=== PATIENT | female | born 1975 | race Caucasian/White ===

== ENCOUNTER 2019-04-19 09:47 | Observation (INO) ==
[2019-04-19 10:28] LABS: Bilirubin,Urine Small (Negative); Blood,Urine Negative (Negative); Clarity,Urine Cloudy (Clear); Color,Urine Yellow (Yellow); Glucose,Urine (UA) Normal (Normal); Ketones,Urine 40 mg/dL (Negative); Leukocyte Esterase,Urine Negative (Negative); Nitrite,Urine Negative (Negative); PH,Urine 5.5 pH Units (5.0-8.0); Protein,Urine Trace mg/dL (Neg-Trace); Specific Gravity,Urine 1.016 (1.010-1.025); Urobilinogen,Urine Normal (Normal)
[2019-04-19 10:30] LABS: Bacteria,Urine None Seen per hpf (None-Few); RBC,Urine 0-3 per hpf (0-3); Squamous Epithelial Cell,Urine Many per lpf (None-Few)
[2019-04-19 10:39] LABS: Hyaline Casts,Urine Few per lpf (None-Few)
[2019-04-19] MEDS ORDERED: Isovue-370 500 ML BOTTLE IVP ONE (11:09)
[2019-04-19] MEDS ORDERED: Dicyclomine 20 MG/2 ML AMPUL IM STA (11:10)
[2019-04-19] MEDS ORDERED: KETAMINE IVPB ONE (11:10)
[2019-04-19] MEDS ORDERED: 0.9 % Sodium Chloride 1,000 ML IVC ONE ×2 (11:10→14:51)
[2019-04-19] MEDS ORDERED: SODIUM CHLORIDE 0.9% IVPB ONE (11:10)
[2019-04-19] MEDS ORDERED: Ondansetron 4 MG/2 ML VIAL IVP STA (11:10)
[2019-04-19] MEDS ORDERED: Ketorolac 15 MG/ML VIAL IVP STA (11:11)
[2019-04-19] MEDS ORDERED: Acetaminophen 325 MG TABLET PO ONE (11:12)
--- NOTE | 2019-04-19 11:14 | Emergency Department Note ---
Disposition Clinical Impression: Hypokalemia, Ileus Pancreatitis Qualifiers: Chronicity: acute Pancreatitis type: alcohol induced Acute pancreatitis compli cation: no infection or necrosis Qualified Code(s): K85.20 - Alcohol induced acute pancreatitis without necrosis or infection Disposition: Admitted As Inpatient Condition: Fair Referrals: Amy Mendez [Primary Care Provider] - Forms: ED Satisfaction Letter, Work/School Release Time of Disposition: 14:50 General Adult HPI - General Chief complaint: ED Abdominal Pain Stated complaint: ABD Pain,N/V,fever Time Seen by Provider: 04/19/19 10:43 Source: patient Limitations: no limitations - History of Present Illness HPI Narrative: Patient presents chief complaint of abdominal pain, fever and vomiting. Symptoms started 5 days ago with vomiting and diarrhea. The diarrhea has since resolved. She now is having hard stools and is still having flatus. She has had no hematemesis, bright red blood per rectum, melena or mucoid stools. She is vomiting that she has tried to drink, clear liquid, nonbilious emesis. Maximum temperature measured at home has been 100.3 degrees. Pain was initially periumbilical, now is epigastric and consistent with prior bouts of pancreatitis. She had recurrent alcoholic pancreatitis which required open surgical procedure for a pseudocyst about 45 years ago, this procedure was done at [facility] after a failed endovascular procedure here. She has had no problems pancreatitis since the surgery, but is drinking again. She does not drink every day. The left cell call consumption was 3 days before the onset of symptoms, about 4 or 5 beers per her report and her 's report at bedside. Denies urinary frequency, urgency, dysuria or hematuria. No vaginal bleeding or discharge. Pain does radiate through to her back. It is constant with intermittent waves of worsening. No chest pain, cough or shortness of breath. She is otherwise without complaint. Pain Scale: 5 - Related Data Home Medications Medication Instructions Recorded Confirmed Levothyroxine [Synthroid] 112 mcg PO DAILY 04/19/19 04/19/19 Allergies Allergy/AdvReac Type Severity Reaction Status Date / Time No Known Allergies Allergy Verified 04/19/19 09:53 All systems ED: reviewed and negative except as stated. Past Medical History - Past Medical History Medical history: Reports: thyroid disease - Social History Smoking Status: Current every day smoker Alcohol use: Reports: occasionally Drug use: Reports: marijuana Physical Exam Vital signs noted, please see nurses notes. General: Thin but Well-developed, well-nourished patient lying in bed who appears non-toxic. Head: Atraumatic, normocephalic. Eyes: Sclera anicteric. ENT: Mucous membranes tacky. Heart: Regular rate and rhythm without appreciable murmur. Lungs: Normal respiratory pattern without distress, lungs clear to auscultation b/l. Abdomen: Soft, maximum tenderness is in the epigastrium with some mild tenderness in the right upper quadrant. She guards in the epigastrium only. No lower abdominal tenderness. No peritoneal signs. Abdomen is nondistended. Skin: Warm and dry without rash. Neurologic: Awake and alert with normal speech and mental status. Pupils are equal. Moves all extremities equally well. No focal deficits or lateralizing signs. Psychiatric: Mood and affect appropriate. - General Limitations: no limitations General appearance: alert, in no apparent distress Course Vital Signs Temperature 97.9 F 04/19/19 09:48 Pulse Rate 96 04/19/19 09:48 Respiratory Rate 18 04/19/19 09:48 Blood Pressure 118/83 04/19/19 09:48 O2 Sat by Pulse Oximetry 98 04/19/19 09:48 Temperature 97.9 F 04/19/19 09:48 Pulse Rate 78 04/19/19 14:42 Respiratory Rate 16 04/19/19 14:42 Blood Pressure 118/72 04/19/19 14:42 O2 Sat by Pulse Oximetry 92 04/19/19 14:42 Oxygen Delivery Oxygen Delivery Room Air Medical Decision Making - Lab Data Result diagrams: 04/19/19 10:53 04/19/19 10:53 Lab Results 04/19/19 04/19/19 04/19/19 Range/Units 10:15 10:53 10:53 WBC 15.0 H (4.3-11.1) K/mcL RBC 3.86 (3.82-4.97) M/mcL Hgb 13.1 (11.5-15.4) g/dL Hct 39.3 (35.3-44.9) % MCV 101.8 H (83.0-100.0) fL MCH 33.9 H (28.0-33.3) pg MCHC 33.3 (31.6-35.5) g/dL RDW 12.8 (11.5-14.5) % Plt Count 326 (140-400) K/mcL MPV 9.5 (9.4-12.4) fL Immature Gran % 1.2 (0-4) % Seg Neutrophils % 74.0 % Lymphocytes % 13.9 % Monocytes % 10.3 % Eosinophils % 0.3 % Basophils % 0.3 % Neutrophils # 11.1 H (1.6-8.9) K/mcL Lymphocytes # 2.1 (0.6-4.6) K/mcL Monocytes # 1.6 H (0.0-1.3) K/mcL Eosinophils # 0.1 (0.0-0.6) K/mcL Basophils # 0.1 (0.0-0.2) K/mcL Sodium 136 (136-145) mEq/L Potassium 3.1 L (3.5-5.1) mEq/L Chloride 99 (98-107) mEq/L Carbon Dioxide 25 (23-29) mEq/L BUN 2 L (6-20) mg/dL Creatinine 0.39 L (0.60-1.20) mg/dL Est GFR ( Amer) > 60 (> 60) Est GFR (Non-Af Amer) > 60 (> 60) BUN/Creatinine Ratio 5 L (6-26) Glucose 116 H (70-105) mg/dL Calculated Osmolality 279 L (280-300) Calcium 9.3 (8.6-10.3) mg/dL Total Bilirubin 0.6 (0.3-1.0) mg/dL Direct Bilirubin 0.2 (0.0-0.2) mg/dL Indirect Bilirubin 0.4 (0.0-1.2) mg/dL AST 16 (13-39) Units/L ALT 12 (7-52) Units/L Alkaline Phosphatase 111 H (34-104) Units/L Serum Total Protein 7.1 (6.4-8.9) g/dL Albumin 3.9 (3.5-5.7) g/dL Globulin 3.2 (2.4-3.5) g/dL Albumin/Globulin Ratio 1.2 (1.1-2.2) Lipase 7 L (11-82) Units/L Urine Color Yellow (Yellow) Urine Clarity Cloudy A (Clear) Urine pH 5.5 (5.0-8.0) pH Units Ur Specific [place] 1.016 (1.010-1.025) Urine Protein Trace (Neg-Trace) mg/dL Urine Glucose (UA) Normal (Normal) mg/dL Urine Ketones 40 H (Negative) mg/dL Urine Blood Negative (Negative) Urine Nitrite Negative (Negative) Urine Bilirubin Small H (Negative) Urine Urobilinogen Normal (Normal) mg/dL Ur Leukocyte Esterase Negative (Negative) Urine Microscopic RBC 0-3 (0-3) per hpf Urine Microscopic WBC 5-15 H (0-3) per hpf Ur Squamous Epith Cells Many H (None-Few) per lpf Urine Bacteria None Seen (None-Few) per hpf Hyaline Casts Few (None-Few) per lpf Ur Culture Indicated? YES A (NO)
[2019-04-19 11:23] LABS: BUN/Creatinine Ratio 5 (6-26); Blood Urea Nitrogen 2 mg/dL (6-20); Calcium 9.3 mg/dL (8.6-10.3); Carbon Dioxide 25 mEq/L (23-29); Chloride 99 mEq/L (98-107); Glucose 116 mg/dL (70-105); Osmolality,Calculated 279 (280-300); Potassium 3.1 mEq/L (3.5-5.1); Sodium 136 mEq/L (136-145); eGFR For African Americans > 60 (> 60); eGFR For Non-African Americans > 60 (> 60)
[2019-04-19 11:28] LABS: Basophils # 0.1 K/mcL (0.0-0.2); Basophils % 0.3 %; Eosinophils # 0.1 K/mcL (0.0-0.6); Eosinophils % 0.3 %; Hematocrit 39.3 % (35.3-44.9); Hemoglobin 13.1 g/dL (11.5-15.4); Immature Granulocytes % 1.2 % (0-4); Lymphocytes # 2.1 K/mcL (0.6-4.6); Lymphocytes % 13.9 %; Mean Corpuscular HGB Conc 33.3 g/dL (31.6-35.5); Mean Corpuscular Hemoglobin 33.9 pg (28.0-33.3); Mean Corpuscular Volume 101.8 fL (83.0-100.0); Mean Platelet Volume 9.5 fL (9.4-12.4); Monocytes # 1.6 K/mcL (0.0-1.3); Monocytes % 10.3 %; Neutrophils # 11.1 K/mcL (1.6-8.9); Platelet Count 326 K/mcL (140-400); Red Blood Count 3.86 M/mcL (3.82-4.97); Red Cell Distribution Width 12.8 % (11.5-14.5)
[2019-04-19 11:46] LABS: Alanine Aminotransferase 12 Units/L (7-52); Albumin 3.9 g/dL (3.5-5.7); Albumin/Globulin Ratio 1.2 (1.1-2.2); Alkaline Phosphatase 111 Units/L (34-104); Aspartate Amino Transferase 16 Units/L (13-39); Bilirubin,Direct 0.2 mg/dL (0.0-0.2); Bilirubin,Indirect 0.4 mg/dL (0.0-1.2); Bilirubin,Total 0.6 mg/dL (0.3-1.0); Globulin 3.2 g/dL (2.4-3.5); Total Protein 7.1 g/dL (6.4-8.9)
[2019-04-19 11:47] LABS: Lipase 7 Units/L (11-82)
[2019-04-19] MEDS ORDERED: 0.9 % Sodium Chloride w KCl 40 MEQ/1,000 ML MLS IVC SCH (14:30)
[2019-04-19] MEDS ORDERED: Naloxone 0.4 MG/ML INJ IVP PRN ×2 (15:12→15:13)
[2019-04-19] MEDS ORDERED: *HR* Promethazine 25 MG/ML VIAL IVP PRN (15:12)
[2019-04-19] MEDS ORDERED: Ondansetron 4 MG/2 ML VIAL IVP PRN (15:12)
[2019-04-19] MEDS ORDERED: Ketorolac 30 MG/ML VIAL IVP PRN (15:13)
--- NOTE | 2019-04-19 15:51 | Internal Med History&Physical ---
Date of Encounter: 04/19/19 Time of Encounter: 15:00 Internal Medicine - H&P: HPI Chief complaint: Epigastric pain Admitted From: Home History of present illness: Ms. Omer is a 43 year old female with hypothyroidism and chronic alcoholism with pancreatitis, complicated by pseudocyst s/p excision ~ 5 years ago, who presented to the ED with 5 day history of epigastric pain. Started with nausea but gradually progressively worsening pain since then. Reports that she drank 3 days prior to the onset of pain. 7/8 out of 10 in intensity, Radiating to the back, aggravated by food, no relieving factors. Initially had bouts of diarrhea which resolved for the last 2-3 days. She also endorses subjective fever but no chills. Denies any chest pain, palpitation, shortness of breath, cough, sputum production, or dysuria. No joint pain or rash. In the ED, she was afebrile and hemodynamically stable. Labwork showed leukocytosis of 15, potassium of 3.1, and lipase of 7. Urinalysis was negative for leukocyte esterase or nitrite. CT scan showed acute pancreatitis with moderate peripancreatic induration and fluid in the background of chronic pancreatitis. There were also several hypodense lesions compatible with pseudocysts, largest one measuring 2.6 x 2.5 cm. She was given IV fluid, IV analgesics, and admitted for further management. Past Med Surg Social Fam HX - Past Medical History Medical history: thyroid disease Additional medical history: pancreatitis - Past Surgical History Additional surgical history: stent in pancreas, pseudocyst excision at [facility] - Social History Smoking Status: Current every day smoker Alcohol use: occasionally Drug use: marijuana Internal Medicine - H&P: Meds Levothyroxine [Synthroid] 112 mcg PO DAILY 04/19/19 [History] Allergy/AdvReac Type Severity Reaction Status Date / Time No Known Allergies Allergy Verified 04/19/19 09:53 All Systems PM: A 10-system review of systems was performed and is negative for pertinent findings except as documented above in the HPI. - Constitutional Vitals: Temp Pulse Resp BP Pulse Ox 97.9 F 78 16 118/72 92 04/19/19 09:48 04/19/19 14:42 04/19/19 14:42 04/19/19 14:42 04/19/19 14:42 Exam: General: Alert and oriented, not in acute distress. HEENT:EOMI, pupils equal, round and reactive. Cardiovascular:Normal S1 & S2, No JVD. Pulse regular. Lungs: clear to auscultation, no wheezes/rales Abdomen:Soft, mild epigastric tenderness without rebound/guarding/rigidity. Hansen's negative. Extremities:No deformity or swelling Neurological:Normal cognition and motor skills. Non-focal Skin:Normal color, no rash, no lesions. Pulses:Carotid and radial pulses normal +2. Rest of the physical exam is non contributory Internal Med - H&P Results - Labs CBC & Chem 7: 04/19/19 10:53 04/19/19 10:53 Labs: Short CBC 04/19/19 Range/Units 10:53 WBC 15.0 H (4.3-11.1) K/mcL Hgb 13.1 (11.5-15.4) g/dL Hct 39.3 (35.3-44.9) % Plt Count 326 (140-400) K/mcL Neutrophils # 11.1 H (1.6-8.9) K/mcL BMP 04/19/19 10:53 Sodium 136 Potassium 3.1 L Chloride 99 Carbon Dioxide 25 BUN 2 L Creatinine 0.39 L Glucose 116 H Calcium 9.3 Liver Function 04/19/19 Range/Units 10:53 Total Bilirubin 0.6 (0.3-1.0) mg/dL Direct Bilirubin 0.2 (0.0-0.2) mg/dL AST 16 (13-39) Units/L ALT 12 (7-52) Units/L Alkaline Phosphatase 111 H (34-104) Units/L Albumin 3.9 (3.5-5.7) g/dL Urine 04/19/19 Range/Units 10:15 Urine Color Yellow (Yellow) Urine Clarity Cloudy A (Clear) Urine pH 5.5 (5.0-8.0) pH Units Ur Specific [place] 1.016 (1.010-1.025) Urine Protein Trace (Neg-Trace) mg/dL Urine Glucose (UA) Normal (Normal) mg/dL - Impressions ITS Impressions Abdomen/Pelvis CT 04/19/19 11:09 IMPRESSION: 1. Acute pancreatitis with moderate peripancreatic induration and fluid. Multiple fluid attenuation lesions are seen in or around the pancreas compatible with pseudocysts, largest of which measures 2.6 x 2.5 cm. 2. Diffuse pancreatic atrophy with pancreatic ductal dilatation and coarse pancreatic calcifications consistent with sequela of chronic pancreatitis. 3. Reactive peripancreatic/retroperitoneal lymph nodes. 4. Fluid-filled loops of small bowel compatible with mild ileus. No bowel obstruction. D/ / 04/19/2019 12:21:37 Rosa Carcamo MD / jaz Interpreting Provider: Rosa Carcamo MD - Assessment and Plan (1) Acute on chronic pancreatitis Current Visit: Yes Status: Acute Assessment and plan: History of chronic pancreatitis with pseudocyst status post excision at the outside hospital continues to drink on a weekly basis unfortunately although lipase is 7, her pain is characteristic of pancreatitis and CT scan did show evidence of acute on chronic pancreatitis with pseudocyst She admits to subjective fever and has leukocytosis of 15 on presentation. However, she was not febrile in the ED and does not appear to be toxic. Nothing by mouth, IV fluid, analgesics if pt develops fever, sepsis, or worsening leukocytosis, would consider transferring her for needle aspiration of pseudocyst for the concern of infected pseudocyst (2) Hypokalemia Current Visit: Yes Status: Acute Assessment and plan: Replete via IV fluid (3) DVT prophylaxis Current Visit: Yes Status: Acute Assessment and plan: Subcutaneous heparin - Time Spent With Patient Total time spent is greater than 50% in coordination of care (as documented) at patient's floor/unit and/or counseling patient: 25 - 35 minutes
[2019-04-19] MEDS: *HR* Heparin 5,000 UNIT/ML VIAL SQ SCH (19:42)
[2019-04-19] MEDS ORDERED: *HR* HYDROmorphone (PF) 1 MG/ML SYRINGE IVP ONE (20:36)
[2019-04-19] MEDS: Ketorolac 15 MG/ML VIAL IVP PRN (21:53)
[2019-04-20] MEDS ORDERED: *HR* HYDROmorphone (PF) 1 MG/ML SYRINGE IVP ONE (03:22)
[2019-04-20] MEDS: *HR* Heparin 5,000 UNIT/ML VIAL SQ SCH (06:00)
[2019-04-20 06:20] LABS: Basophils # 0.1 K/mcL (0.0-0.2); Basophils % 0.6 %; Eosinophils # 0.1 K/mcL (0.0-0.6); Hematocrit 33.1 % (35.3-44.9); Immature Granulocytes % 0.9 % (0-4); Lymphocytes % 18.7 %; Mean Corpuscular Hemoglobin 34.1 pg (28.0-33.3); Mean Corpuscular Volume 106.4 fL (83.0-100.0); Monocytes # 1.2 K/mcL (0.0-1.3); Monocytes % 11.4 %; Neutrophils # 7.1 K/mcL (1.6-8.9); Platelet Count 320 K/mcL (140-400); Red Blood Count 3.11 M/mcL (3.82-4.97); Red Cell Distribution Width 12.7 % (11.5-14.5); Segmented Neutrophils % 67.4 %; White Blood Count 10.5 K/mcL (4.3-11.1)
[2019-04-20 06:33] LABS: Hemoglobin 10.6 g/dL (11.5-15.4)
[2019-04-20 06:40] LABS: BUN/Creatinine Ratio 6 (6-26); Blood Urea Nitrogen 2 mg/dL (6-20); Calcium 7.7 mg/dL (8.6-10.3); Carbon Dioxide 21 mEq/L (23-29); Chloride 107 mEq/L (98-107); Glucose 85 mg/dL (70-105); Magnesium 1.6 mg/dL (1.6-2.6); Osmolality,Calculated 281 (280-300); Potassium 3.2 mEq/L (3.5-5.1); Sodium 138 mEq/L (136-145); eGFR For African Americans > 60 (> 60); eGFR For Non-African Americans > 60 (> 60)
[2019-04-20] MEDS ORDERED: Potassium Chloride 40 MEQ, Lidocaine 1% 2 ML in D5% in Water 500 ML IVPB ONE (07:35)
[2019-04-20] MEDS: Ketorolac 15 MG/ML VIAL IVP PRN (09:44)
[2019-04-20 11:23] VITALS: BP 106/62
--- NOTE | 2019-04-20 11:58 | Internal Med Progress Note ---
Hospitalist Progress Note - Encounter Date of Encounter: 04/20/19 Time of Encounter: 09:45 - Subjective Interval History: Reports improvement of epigastric pain. Nausea and vomiting subsided. No fever overnight. - Exam Vitals: Temp Pulse Resp BP Pulse Ox 98.5 F 75 16 106/62 95 04/20/19 11:18 04/20/19 11:18 04/20/19 11:18 04/20/19 11:18 04/20/19 11:18 Exam: General: Alert and oriented, not in acute distress. Cardiovascular:Normal S1 & S2, No JVD. Pulse regular. Lungs: clear to auscultation, no wheezes/rales Abdomen:Soft, minimal epigastric tenderness without rebound/guarding/rigidity. Hansen's negative. Extremities:No deformity or swelling Neurological:Normal cognition and motor skills. Non-focal - Assessment and Plan (1) Acute on chronic pancreatitis Current Visit: Yes Status: Acute Assessment and Plan: History of chronic pancreatitis with pseudocyst status post excision at the outside hospital continues to drink on a weekly basis unfortunately although lipase is 7, her pain is characteristic of pancreatitis and CT scan did show evidence of acute on chronic pancreatitis with pseudocyst She admits to subjective fever and has leukocytosis of 15 on presentation. However, she was not febrile in the ED and does not appear to be toxic. Leukocytosis also resolved overnight will continue NPO for now but start clears from dinner if she continues to improve. Continue IV fluid, analgesics (2) Hypokalemia Current Visit: Yes Status: Acute Assessment and Plan: continue to replete (3) Hypothyroidism Current Visit: Yes Status: Chronic Assessment and Plan: resume home meds (4) DVT prophylaxis Current Visit: Yes Status: Acute Assessment and Plan: Subcutaneous heparin - Time Spent with Patient Total time spent is greater than 50% in coordination of care (as documented) at patient's floor/unit and/or counseling patient: 25 - 35 minutes Internal Medicine: Result - Labs CBC & Chem 7: 04/20/19 06:05 04/20/19 06:05 Labs: Short CBC 04/20/19 Range/Units 06:05 WBC 10.5 (4.3-11.1) K/mcL Hgb 10.6 L D (11.5-15.4) g/dL Hct 33.1 L (35.3-44.9) % Plt Count 320 (140-400) K/mcL Neutrophils # 7.1 (1.6-8.9) K/mcL BMP 04/20/19 06:05 Sodium 138 Potassium 3.2 L Chloride 107 Carbon Dioxide 21 L BUN 2 L Creatinine 0.33 L Glucose 85 Calcium 7.7 L - Impressions Impressions Abdomen/Pelvis CT 04/19/19 11:09 IMPRESSION: 1. Acute pancreatitis with moderate peripancreatic induration and fluid. Multiple fluid attenuation lesions are seen in or around the pancreas compatible with pseudocysts, largest of which measures 2.6 x 2.5 cm. 2. Diffuse pancreatic atrophy with pancreatic ductal dilatation and coarse pancreatic calcifications consistent with sequela of chronic pancreatitis. 3. Reactive peripancreatic/retroperitoneal lymph nodes. 4. Fluid-filled loops of small bowel compatible with mild ileus. No bowel obstruction. D/ / 04/19/2019 12:21:37 Rosa Carcamo MD / jaz Interpreting Provider: Rosa Carcamo MD Consult Discharge Plan - Plan Referrals: Amy Mendez [Primary Care Provider] - (3) Hypothyroidism Qualifiers: Hypothyroidism type: unspecified Qualified Code(s): E03.9 - Hypothyroidism, unspecified
[2019-04-20] MEDS ORDERED: Ringers Solution, Lactated 1,000 ML IVC SCH (12:00)
--- NOTE | 2019-04-20 13:13 | Discharge Summary ---
- NOTES TO OUTPATIENT PROVIDER Notes to Outpatient Provider: Left AMA Orders not resulted at time of discharge: Pending orders 04/19/19 10:15 Culture,Urine [RM] Stat Date of Encounter: 04/20/19 Time of Encounter: 09:45 - Discharge Diagnosis (1) Acute on chronic pancreatitis Priority: Primary Status: Acute (2) Hypokalemia Priority: Secondary Status: Acute (3) Hypothyroidism Priority: Secondary Status: Chronic Qualifiers: Hypothyroidism type: unspecified Qualified Code(s): E03.9 - Hypothyroidism, unspecified (4) DVT prophylaxis Priority: Secondary Status: Acute Hospital course: Ms. Omer is a 43 year old female with hypothyroidism and chronic alcoholism with pancreatitis, complicated by pseudocyst s/p excision ~ 5 years ago, who was admitted for acute on chronic pancreatitis. Clinically improved overnight with NPO, IVF, and analgesics. She was seen earlier in the morning on 04/20 when she agreed to stay till dinner before we advance the diet to clear liquid with anticipation for discharge tomorrow. During the afternoon, I was informed by the nurse that patient left AMA as she was unhappy that the nursing staff wouldn't let her leave the unit and go downstairs. I unfortunately did not get a chance to speak to her before she left. Discharge discussed with: patient, nurse - Time Spent with Patient Total time spent providing and/or coordinating discharge services: 31 mins - Discharge Medications Prescriptions: Continued Levothyroxine [Synthroid] 112 mcg PO DAILY Home Medications: Levothyroxine [Synthroid] 112 mcg PO DAILY 04/19/19 [History] Allergies/Adverse Reactions: Allergy/AdvReac Type Severity Reaction Status Date / Time No Known Allergies Allergy Verified 04/19/19 09:53 Date of admission: 04/19/19 15:53 Primary care physician: Amy Mendez - Constitutional Vitals: Temp Pulse Resp BP Pulse Ox 98.5 F 75 16 106/62 95 04/20/19 11:18 04/20/19 11:18 04/20/19 11:18 04/20/19 11:18 04/20/19 11:18 Exam: General: Alert and oriented, not in acute distress. Cardiovascular:Normal S1 & S2, No JVD. Pulse regular. Lungs: clear to auscultation, no wheezes/rales Abdomen:Soft, minimal epigastric tenderness without rebound/guarding/rigidity. Hansen's negative. Extremities:No deformity or swelling Neurological:Normal cognition and motor skills. Non-focal - Patient Status Disposition: Left Against Medical Advice Condition: Fair - Discharge Instructions Instructions: Pancreatitis (DC) Follow Up With: Amy Mendez [Primary Care Provider] -
== END 2019-04-20 13:05 | disposition left against medical advice (07) ==
LOC: 3BNU 09:47 → EMEROOARM 09:47 → SUATTDRO 15:53 → 3BNU 18:00
PROVIDERS: ADMIT Internal Medicine; ATTEND Internal Medicine